=== PATIENT | male | born 1950 | race Caucasian/White ===

== ENCOUNTER 2018-08-31 05:48 | Inpatient (IN) ==
--- NOTE | 2018-08-04 15:57 | PAT Medication Instructions ---
Medication Instructions Date of Service August 04, 2018 Home Medications Lactobacillus acidophilus 1 cap PO QAM albuterol sulfate [ProAir HFA] 2 puff INHALATION QID PRN ascorbic acid (vitamin C) [Vitamin 500 mg PO QAM aspirin [Aspirin Low Dose] 81 mg PO QAM dexlansoprazole [Dexilant] 30 mg PO QAM diphenhydramine HCl 12.5 mg PO QAM PRN docusate sodium 2 cap PO QAM fluticasone [Flonase Allergy 2 spray INTRANASAL QAM ibuprofen 200 mg PO QID PRN linaclotide [Linzess] 145 mcg PO DAILY PRN metoprolol succinate [Toprol XL] 25 mg PO QAM [id number]-epa-fish oil [[place]-3 2 tab PO BID primidone 100 mg PO HS primidone 150 mg PO QAM psyllium husk [Metamucil] 1 tsp PO QPM simvastatin 40 mg PO QAM tamsulosin 0.4 mg PO QAM turmeric root extract 500 mg PO QAM ASK your surgeon for instructions ibuprofen 200 mg PO QID PRN STOP taking 2 weeks before surgery (or as soon as possible if surgery is within 2 weeks) oonay-[id number]-epa-fish oil [[place]-3 2 tab PO BID turmeric root extract 500 mg PO QAM DO NOT take the morning of surgery Lactobacillus acidophilus 1 cap PO QAM ascorbic acid (vitamin C) [Vitamin 500 mg PO QAM diphenhydramine HCl 12.5 mg PO QAM PRN docusate sodium 2 cap PO QAM linaclotide [Linzess] 145 mcg PO DAILY PRN psyllium husk [Metamucil] 1 tsp PO QPM Take morning of surgery With a small sip of water, OTHERWISE NOTHING TO EAT OR DRINK AFTER MIDNIGHT: albuterol sulfate [ProAir HFA] 2 puff INHALATION QID PRN (use if needed; please bring with you to hospital day of surgery if possible) aspirin [Aspirin Low Dose] 81 mg PO QAM dexlansoprazole [Dexilant] 30 mg PO QAM fluticasone [Flonase Allergy 2 spray INTRANASAL QAM metoprolol succinate [Toprol XL] 25 mg PO QAM primidone 150 mg PO QAM simvastatin 40 mg PO QAM tamsulosin 0.4 mg PO QAM Other Notes If you have any questions please call us at [phone] or [phone] or [phone] or [phone]
--- NOTE | 2018-08-07 12:46 | Anesthesiology Consultation ---
Date of Service August 07, 2018 Assessment & Plan (1) Encounter for pre-operative examination: Chart Review Chart Review: Acceptable Risk for Surgery and Patient seen in Pre Admission Testing Teaching & Discussion Pre-Anesthesia Teaching/Discussion Notes: Instructed NPO after midnight before surgery,except medications with 15 cc of water. Medication instructions provided according to the PAT guidelines. History Surgery Operation Date: 08/31/18 09:00 Proposed Procedures p Total Knee Arthroplasty - Daniel Sellers MD Height/Weight Height: 6 ft Weight: 123 kg Allergies Allergy/AdvReac Type Severity Reaction Status Date / Time erythromycin base AdvReac Mild gi upsets Verified 07/31/18 10:11 Medications Home Medications Medication Instructions Recorded Confirmed Last Taken Lactobacillus acidophilus 1 cap PO QAM 07/31/18 07/31/18 Unknown [Probiotic Acidophilus] albuterol sulfate [ProAir HFA] 2 puff INHALATION QID PRN 07/31/18 07/31/18 Unknown ascorbic acid (vitamin C) [Vitamin 500 mg PO QAM 07/31/18 07/31/18 Unknown C] aspirin [Aspirin Low Dose] 81 mg PO QAM 07/31/18 07/31/18 Unknown dexlansoprazole [Dexilant] 30 mg PO QAM 07/31/18 07/31/18 Unknown diphenhydramine HCl 12.5 mg PO QAM PRN 07/31/18 07/31/18 Unknown docusate sodium 2 cap PO QAM 07/31/18 07/31/18 Unknown fluticasone [Flonase Allergy 2 spray INTRANASAL QAM 07/31/18 07/31/18 Unknown Relief] ibuprofen 200 mg PO QID PRN 07/31/18 07/31/18 Unknown linaclotide [Linzess] 145 mcg PO DAILY PRN 07/31/18 07/31/18 Unknown metoprolol succinate [Toprol XL] 25 mg PO QAM 07/31/18 07/31/18 Unknown vvogr-5q-rzp-epa-fish oil [[place]-3 2 tab PO BID 07/31/18 07/31/18 Unknown Fish Oil] primidone 100 mg PO HS 07/31/18 07/31/18 Unknown primidone 150 mg PO QAM 07/31/18 07/31/18 Unknown psyllium husk [Metamucil] 1 tsp PO QPM 07/31/18 07/31/18 Unknown simvastatin 40 mg PO QAM 07/31/18 07/31/18 Unknown tamsulosin 0.4 mg PO QAM 07/31/18 07/31/18 Unknown turmeric root extract 500 mg PO QAM 07/31/18 07/31/18 Unknown Past Medical History Medical History Asthma STABLE Chronic constipation GERD (gastroesophageal reflux disease) CONTROLLED High cholesterol History of kidney stones Hypertension Osteoarthritis Sarcoidosis "DORMANT"; 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 Tremor RIGHT HAND Past Family History Family History Mother Family history of diabetes mellitus Family/Other Family history of diabetes mellitus Grandmother (Paternal) Family history of diabetes mellitus Past Surgical History Surgical History History of arthroscopic knee surgery B/L History of cardiac cath History of toe surgery RIGHT GREAT TOE SURGERY X2 Hx of lithotripsy x2 Hx of shoulder surgery B/L RCR Past Anesthesia History No Hx of Anesthesia Complications and No Family Hx of Anesthesia Complications History of PONV No Motion Sickness Screening History of Motion Sickness: Yes (OCCASIONAL) Social History Smoking Status: Never smoker Do You Dip or Chew Tobacco: No Hx Alcohol Use: Yes alcohol intake frequency: holidays/special occasions only Hx Substance Use: No substance use type: does not use Exercise / Class Metabolic Activity II 4-5 Yardwork/Stairs/Walk up hill Review of Systems Patient denies chest pain, shortness of breath, dyspnea on exertion, cough, wheezing, palpitations. Physical Exam Vital Signs VITALS BP 135/77 P 67 TEMP 97.7 SP02 95%RA RESP 18 PHYSICAL Full neck and c-spine range of motion. Full TMJ range of motion. TMD 4 finger breaths Mallampati Score 3 Dentition: intact, several crowns on sides Lungs: clear throughout to auscultation Cardiac: regular rate and rhythm, no murmurs noted Spine: normal Carotid arteries: negative bruit Extremities: no edema Testing Electrocardiogram Date: 08/07/18 Findings: + NSR @ (62) Chest X-Ray Date: 01/06/18 Findings: + NAD Lungs are clear. Stable appearance of tiffanie. No pleural effusions or pneumothorax. Laboratory Results 08/07/18 12:58 08/07/18 12:58 Blood Type A Positive 08/07/18 12:58 Antibody Screen NEGATIVE 08/07/18 12:58 PT 10.2 Seconds (9.0-12.0) 08/07/18 12:58 INR 1.0 (0.9-1.1) 08/07/18 12:58 APTT 24.4 Seconds (21.0-31.0) 08/07/18 12:58 Hemoglobin A1c 5.3 % (4.5-5.6) 08/07/18 12:58 Urine Color Yellow 08/07/18 12:58 Urine Appearance Clear (Clear) 08/07/18 12:58 Urine pH 5.0 (4.5-7.5) 08/07/18 12:58 Ur Specific [place] 1.025 (1.000-1.030) 08/07/18 12:58 Urine Protein Negative (Negative) 08/07/18 12:58 Urine Glucose (UA) Negative (Negative) 08/07/18 12:58 Urine Ketones Negative (Negative) 08/07/18 12:58 Urine Nitrite Negative (Negative) 08/07/18 12:58 Ur Leukocyte Esterase Negative (Negative) 08/07/18 12:58
[2018-08-07 14:41] LABS: Basophils # (auto) 0.03 K/uL (0-0.2); Basophils % (auto) 0.5 %; Eosinophils # (auto) 0.24 K/uL (0-0.5); Eosinophils % (auto) 3.7 %; Hematocrit (blood only) 39.6 % (42-52); Hemoglobin 13.6 g/dL (14.0-18.0); Immature Granulocytes # (auto) 0.01 K/uL (0.00-0.02); Immature Granulocytes % (auto) 0.2 %; Lymphocytes # (auto) 1.98 K/uL (1.2-3.4); Lymphocytes % (auto) 30.8 %; Mean Corpuscular Hgb Conc 34.3 g/dL (32-36); Mean Corpuscular Volume 94.5 fL (80-100); Monocytes # (auto) 0.55 K/uL (0.11-0.59); Monocytes % (auto) 8.6 %; Neutrophils # (auto) 3.61 K/uL (1.4-6.5); Neutrophils % (auto) 56.2 %; Platelet Count 171 K/uL (130-400); RDW Coefficient of Variation 12.9 % (11.5-14.5); RDW Standard Deviation 44.7 fL (36.4-46.3); Red Blood Count 4.19 M/uL (4.7-6.1); White Blood Count 6.42 K/uL (4.8-10.8)
[2018-08-07 14:46] LABS: Estimated Average Glucose 105 mg/dl; Hemoglobin A1C 5.3 % (4.5-5.6)
[2018-08-07 14:52] LABS: Partial Thromboplastin Ratio 0.9; Partial Thromboplastin Time 24.4 Seconds (21.0-31.0); Prothrombin Time 10.2 Seconds (9.0-12.0)
[2018-08-07 14:56] LABS: Appearance Urine Clear (Clear); Bilirubin Urine Negative (Negative); Blood Urine Negative (Negative); Color Urine Yellow; Glucose Urine UA Negative (Negative); Ketones Urine Negative (Negative); Leukocyte Esterase Urine Negative (Negative); Nitrite Urine Negative (Negative); Protein Urine Negative (Negative); Specific Gravity Urine 1.025 (1.000-1.030); Urobilinogen Urine Negative (Negative)
[2018-08-07 15:04] LABS: Albumin Level 3.8 gm/dl (3.4-5.0); Calcium 8.1 mg/dl (8.5-10.1); Creatinine Clr Calc Pharmacy 102.2 ml/min; Est GFR (African American) 95.6; Est GFR (Non-African American) 82.5; Potassium 4.2 mmol/L (3.5-5.1)
--- NOTE | 2018-08-30 12:14 | History and Physical Report ---
DATE OF ADMISSION: 08/31/2018 CHIEF COMPLAINT: Left knee pain. HISTORY OF PRESENT ILLNESS: The patient is a 67-year-old gentleman with known osteoarthritis about his left knee. He had a remote history of surgery in that knee many, many years ago. He had a recent corticosteroid injection with short-term relief. He continues to have pain and disability and now desires to proceed with left total knee arthroplasty. PAST MEDICAL HISTORY: Hyperlipidemia, depression, benign prostatic hypertrophy, GERD, intermittent asthma, hypertension, pulmonary sarcoidosis. PAST SURGICAL HISTORY: Shoulder arthroscopy, hand surgery, lithotripsy, tonsillectomy, toe surgery, arm surgery. MEDICATIONS: Docusate sodium 100 mg twice daily, Linzess 145 mcg daily, Zocor 40 mg daily, Flonase 2 sprays each nostril daily, Dexilant 30 mg daily, Flomax 0.4 mg daily, metoprolol succinate XL 25 mg daily, albuterol 2 puffs q. 4 hours p.r.n., probiotic daily, omega 3 two capsules daily, Mysoline 50 mg 3 tabs in the morning and 2 at bedtime, aspirin 81 mg daily. ALLERGIES: ERYTHROMYCIN. SOCIAL HISTORY AND REVIEW OF SYSTEMS: Noncontributory. PHYSICAL EXAMINATION: GENERAL: Well-nourished, well-developed male who appears stated age. HEENT: Normocephalic, atraumatic. Extraocular movements intact. Oropharynx pink and moist. NECK: Supple without adenopathy. LUNGS: Clear to auscultation bilaterally. HEART: Regular rate and rhythm. ABDOMEN: Soft, nontender, nondistended. EXTREMITIES: The upper extremity is within normal limits. The left knee has a neutral alignment. He complains primarily of lateral compartment pain. His range of motion is approximately 0-120 degrees. He has mild crepitus with range of motion. X-RAYS: X-rays were reviewed. He has a neutral aligned knee. He has near complete loss of the lateral joint space with near bone on bone arthritis. He has lateral joint line osteophytes. He has moderate degenerative change about the patellofemoral joint with osteophytes as well. ASSESSMENT: Left knee degenerative joint disease. PLAN: Risks versus benefits were discussed, consent was obtained. The patient's primary care physician is Dr. Correa. We will proceed with left total knee arthroplasty as indicated.
[2018-08-31] MEDS ORDERED: LR 500ML BOLUS, THEN 15ML/HR IV SCH (06:00)
[2018-08-31] MEDS ORDERED: FAMOTIDINE 20 MG TAB PO SCH (06:00)
[2018-08-31] MEDS ORDERED: GABAPENTIN 300 MG PO SCH (06:00)
[2018-08-31] MEDS ORDERED: ROPIVACAINE 0.5% HCL/PF 150 MG, BUPIVACAINE 0.5% MPF 30 ML, EPINEPHrine 30MG/30ML (OR U... INFIL SCH (06:00)
[2018-08-31] MEDS ORDERED: TRANEXAMIC ACID 1,000 MG **IV Pre-op IV SCH (06:00)
[2018-08-31] MEDS ORDERED: CEFAZOLIN 3000MG 65 ML IV SCH (06:00)
[2018-08-31] MEDS ORDERED: dexAMETHasone 4 MG TAB PO SCH (06:00)
[2018-08-31] MEDS ORDERED: CeleBREX 200 MG CAP PO SCH (06:00)
[2018-08-31] MEDS ORDERED: ACETAMINOPHEN 500 MG TAB PO SCH (06:00)
[2018-08-31] MEDS ORDERED: OXYCODONE HCL 10 MG TABCR (OXYCONTIN) PO SCH (06:00)
[2018-08-31] MEDS ORDERED: METOCLOPRAMIDE HCL 10 MG TABLET PO SCH (06:00)
[2018-08-31] MEDS ORDERED: BUPIVACAINE 0.5 % 5 MG/1 ML PF 10ML VIAL ONE (06:23)
[2018-08-31] MEDS ORDERED: ROPIVACAINE 0.5% 5 MG/ML 30 ML VIAL ONE (06:23)
[2018-08-31] MEDS ORDERED: TRANEXAMIC ACID 1,000 MG **IV Intra-op IV SCH (06:30)
[2018-08-31] MEDS ORDERED: ONDANSETRON INJ 2 MG/ML 2 ML VIAL IV PRN ×2 (06:45→12:01)
[2018-08-31] MEDS ORDERED: HYDROmorphone INJ 1 MG/ML SYRINGE IV PRN ×2 (06:45→12:01)
[2018-08-31] MEDS ORDERED: fentaNYL citrate 100 MCG/2 ML VIAL IV PRN (06:45)
[2018-08-31] MEDS ORDERED: ATROPINE SULFATE 0.1 MG/ML 10ML SYR IV PRN (06:45)
[2018-08-31] MEDS ORDERED: PROMETHAZINE HCL 12.5 MG in SODIUM CHLORIDE 0.9% 50 ML IV PRN (06:45)
[2018-08-31] MEDS ORDERED: ePHEDrine sulfate 50 MG/ML AMP IV PRN (06:45)
[2018-08-31] MEDS ORDERED: PHENYLEPHRINE 100MCG/ML 5ML SYR IV PRN (06:45)
[2018-08-31] MEDS ORDERED: LIDOCAINE HCL 2% 2 ML VIAL/AMP(20MG/ML) INFIL ONE (06:56)
[2018-08-31] MEDS ORDERED: PROPOFOL IV EMULSION 10 MG/ML 20 ML VIAL IV ONE ×2 (06:56→09:04)
[2018-08-31] MEDS ORDERED: fentaNYL citrate 100 MCG/2 ML VIAL ONE (06:57)
[2018-08-31] MEDS ORDERED: KETAMINE HCL INJ 50 MG/ML 10 ML VIAL ONE (06:57)
[2018-08-31] MEDS ORDERED: MIDAZOLAM HCL 1 MG/ML 2ML VIAL ONE (06:57)
--- NOTE | 2018-08-31 07:00 | History & Physical Bridge Note ---
Date of Service August 31, 2018 History & Physical Bridge Note I have examined the patient, reviewed the History & Physical and in the interval since the performance of the History & Physical I have noted the following changes of clinical significance: no changes noted
[2018-08-31] MEDS ORDERED: BACITRACIN INJ 50,000 UNIT VIAL ONE (07:06)
[2018-08-31] MEDS ORDERED: ORTHO JOINT ANESTHETIC ONE (07:06)
[2018-08-31] MEDS ORDERED: POVIDONE-IODINE OP SOLN 30 ML BTL ONE (07:06)
--- NOTE | 2018-08-31 09:25 | Operative Report ---
Post Operative Report Pre & Post Diagnosis Operation Date: 08/31/18 08:20 Pre-Op Diagnosis: Left Knee Osteoathritis Post-Op Diagnosis: Left Knee Osteoathritis Procedure Operation Date: 08/31/18 08:20 Actual Procedures p Left Total Knee Arthroplasty, Cemented(Left) - Daniel Sellers MD Surgeon Danile Sellers MD Reporting Coordinator Preston Estimated Blood Loss 10 Findings Consistent with Post-Op Diagnosis Specimens Bone fragments Drains Hemovac Complications none Disposition Accompanied Patient To Recovery: No Disposition: Recovery Room Indications Knee pain Description of Procedure Patient's left leg was prepped and draped in usual sterile manner. Limb was exsanguinated to 300 mmHg. Longitudinal incision was made electrocautery was utilized in medium. Parapatellar incision was made. The patella was everted and the knee was flexed fat pad was removed and the proximal tibia was osteotomized at the appropriate level using the oscillating saw. This bone fragment was removed. Next attention was turned to the distal femur where a drill was utilized to get access to the femoral canal. A size 6 cutting guide was utilized and the femoral cuts were made. All bone fragments were removed. The intercondylar notch was prepared this bone fragment was removed and the medial and lateral meniscal remnants were removed. Trial femur was placed and holes for the pegs were placed in the tibia was subluxed anteriorly using blunt and sharp Hohmann. Size 6 tibia was chosen size to be used tibia was prepared and a trial reduction was carried out in size 13 poly-was chosen. The patella was reamed and a size 39 tunnel was chosen. Trial was removed cement was mixed and the final components were cemented in position. Following cementation removal of excess cement the knee was held in extension while cement hardened after hardening the cement Betadine soap was utilized Hemovac drain was placed fascia was closed using #2 Mersilene subcutaneous tissue was closed using 0 Dexon skin was closed with is applied. Sterile dressing of Adaptic 4 x 4's sterile Webril umbilicus applied. Patient tolerated procedure well Was utilized to all portions of the case including positioning prepping draping surgical assistance wound closure and dressing application. I attest to the content of the Intraoperative Record and any orders documented therein. Any exceptions are noted below.
--- NOTE | 2018-08-31 10:32 | XRay Report ---
LEFT KNEE 2 VIEWS History: Left total knee arthroplasty. Degenerative arthritis. Postop. FINDINGS: The patient is status post a left total knee arthroplasty. The hardware is intact. No fract ure or dislocation. Surgical drains are in place. IMPRESSION: Left total knee arthroplasty. No evidence for hardware complication. Electronically signed by: Franck Washington M.D. 08/31/2018 10:31 AM
--- NOTE | 2018-08-31 10:51 | Anesthesiology Progress Note ---
Date of Service August 31, 2018 Anesthesia Post Procedure Vital Signs Vital Signs: Temp Pulse Pulse Resp BP Pulse Ox 08/31/18 10:41 36.9 C 97 08/31/18 10:40 64 20 121/62 95 08/31/18 10:30 68 20 122/70 96 08/31/18 10:20 70 15 111/67 97 08/31/18 10:10 75 15 110/64 97 08/31/18 10:01 36.6 C 72 18 105/51 L 94 08/31/18 06:43 37.1 C 68 20 169/85 H 95 Pain Intensity Left Knee: Pain Intensity: 0 Notes Mental Status: alert / awake / arousable Patient Amnestic to Procedure: Yes Nausea / Vomiting: adequately controlled Pain: adequately controlled Airway Patency, RR, SpO2: stable & adequate BP & HR: stable & adequate Neuraxial Anesthesia: was administered and sensory block is resolving Anesthetic Complications: no major complications apparent
[2018-08-31] MEDS ORDERED: MAGNESIUM HYDROXIDE SUSP 30 ML UDC PO PRN (12:01)
[2018-08-31] MEDS ORDERED: BISACODYL 10 MG SUPP PR PRN (12:01)
[2018-08-31] MEDS ORDERED: NALOXONE HCL 0.4 MG/1 ML VIAL/CARP IV PRN (12:01)
[2018-08-31] MEDS ORDERED: METOCLOPRAMIDE HCL INJ 5 MG/ML 2 ML VIAL IV PRN (12:01)
[2018-08-31] MEDS ORDERED: ALUMINUM/MAGNESIUM SUSP 30 ML UDC PO PRN (12:01)
[2018-08-31] MEDS ORDERED: ALBUTEROL HFA 8 GM INHALER INH PRN (13:30)
[2018-08-31] MEDS: SODIUM CHLORIDE 0.9% 1000ML 1,000 ML IV SCH (13:48)
[2018-08-31] MEDS: ACETAMINOPHEN 500 MG TAB PO SCH ×2 (13:55→21:30)
[2018-08-31] MEDS: KETOROLAC TROMETHAMINE 15 MG/ML VIAL IV SCH ×2 (13:56→21:22)
[2018-08-31] MEDS: CEFAZOLIN 2000MG 2,000 MG/15 ML SYR IV SCH ×2 (16:08→23:37)
[2018-08-31] MEDS: FERROUS GLUCONATE 324 MG TAB PO SCH (18:07)
[2018-08-31] MEDS: ASCORBIC ACID 500 MG TAB PO SCH (18:08)
[2018-08-31] MEDS: OXYCODONE HCL IR 5 MG TAB (IMMEDIATE RELEASE) PO PRN (18:55)
[2018-08-31] MEDS: SENNA 8.6 MG TAB PO SCH (21:23)
[2018-08-31] MEDS: PRIMIDONE 50 MG TAB PO SCH (21:23)
[2018-08-31] MEDS: ASPIRIN 81 MG ECTAB PO SCH (21:23)
[2018-08-31] MEDS: DOCUSATE SODIUM 100 MG CAP PO SCH (21:29)
[2018-09-01] MEDS: KETOROLAC TROMETHAMINE 15 MG/ML VIAL IV SCH ×2 (02:43→07:37)
[2018-09-01] MEDS: ACETAMINOPHEN 500 MG TAB PO SCH ×3 (06:46→22:16)
[2018-09-01] MEDS: SODIUM CHLORIDE 0.9% 1000ML 1,000 ML IV SCH (07:13)
--- NOTE | 2018-09-01 07:31 | Orthopedic Progress Note ---
Date of Service September 01, 2018 Assessment & Plan (1) Status post left knee replacement: 67 yo male stable POD #1 s/p left TKA 1. Med management 2. DVT prophylaxis- ASA, SCDs 3. PT/OT 4. D/C planning- home w/ HH Subjective Pt resting in chair, pain controlled denies complaints Physical Exam Vital Signs (Past 24 Hours): Last Vital Signs Temp 36.6 C 09/01/18 03:06 Pulse 64 09/01/18 03:06 Resp 14 09/01/18 03:06 BP 147/76 H 09/01/18 03:06 Pulse Ox 95 09/01/18 03:06 Physical Exam: Toes mobile, N/V/I, dressing and drain in place Results & Data Laboratory Results 09/01/18 Range/Units 05:21 Hepatitis C Ab Screen Pending
[2018-09-01] MEDS: FERROUS GLUCONATE 324 MG TAB PO SCH ×2 (07:35→17:37)
[2018-09-01] MEDS: ASCORBIC ACID 500 MG TAB PO SCH ×2 (07:35→17:38)
[2018-09-01] MEDS ORDERED: dexAMETHasone 10 MG in SYRINGE 0 ML IV SCH (08:00)
--- NOTE | 2018-09-01 08:01 | Anesthesiology Progress Note ---
Date of Service September 01, 2018 Anesthesia Post Procedure Vital Signs Vital Signs: Temp Pulse Pulse Resp BP BP Pulse Ox 09/01/18 07:20 36.5 C 62 15 155/80 H 94 09/01/18 03:06 36.6 C 64 14 147/76 H 95 08/31/18 23:00 36.6 C 67 16 145/67 H 94 08/31/18 15:14 36.6 C 73 18 126/69 96 08/31/18 14:33 73 16 128/72 97 08/31/18 13:28 73 16 136/71 96 08/31/18 12:50 71 16 123/69 95 08/31/18 12:24 75 16 127/77 97 08/31/18 11:45 36.8 C 68 16 118/72 96 08/31/18 11:20 36.9 C 67 16 116/71 96 08/31/18 11:10 66 17 125/70 97 08/31/18 11:00 66 17 124/63 96 08/31/18 10:50 64 15 117/68 96 08/31/18 10:41 36.9 C 97 08/31/18 10:40 64 20 121/62 95 08/31/18 10:30 68 20 122/70 96 08/31/18 10:20 70 15 111/67 97 08/31/18 10:10 75 15 110/64 97 08/31/18 10:01 36.6 C 72 18 105/51 L 94 Pain Intensity Left Knee: Pain Intensity: 0 Notes Mental Status: alert / awake / arousable and participated in evaluation Patient Amnestic to Procedure: Yes Nausea / Vomiting: adequately controlled Pain: adequately controlled Airway Patency, RR, SpO2: stable & adequate BP & HR: stable & adequate Hydration State: stable & adequate Neuraxial Anesthesia: was administered and sensory block resolved Anesthetic Complications: no major complications apparent and Pt Satisfied with anesthetic care
[2018-09-01] MEDS ORDERED: LACTOBACILLUS ACIDOPHILUS PO SCH (09:00)
[2018-09-01] MEDS ORDERED: ASCORBIC ACID 500 MG TAB PO SCH (09:00)
[2018-09-01] MEDS ORDERED: DOCUSATE SODIUM PO SCH (09:00)
[2018-09-01] MEDS: METOPROLOL SUCC 25MG EXT REL TAB PO SCH (09:01)
[2018-09-01] MEDS: MULTIVITAMIN TAB PO SCH (09:01)
[2018-09-01] MEDS: SIMVASTATIN 40 MG TAB PO SCH (09:01)
[2018-09-01] MEDS: PANTOprazole 40 MG TAB PO SCH (09:01)
[2018-09-01] MEDS: TAMSULOSIN HCL 0.4 MG CAP PO SCH (09:01)
[2018-09-01] MEDS: LACTOBACILLUS ACIDOPHILUS 1 GM PACK PO SCH (09:01)
[2018-09-01] MEDS: ASPIRIN 81 MG ECTAB PO SCH ×2 (09:01→20:30)
[2018-09-01] MEDS: FLUTICASONE PROPIONATE NA SPR 16 GM BTL NAE SCH (09:02)
[2018-09-01] MEDS: PRIMIDONE 50 MG TAB PO SCH ×2 (09:02→20:29)
[2018-09-01] MEDS: DOCUSATE SODIUM 100 MG CAP PO SCH ×2 (09:10→20:31)
[2018-09-01] MEDS: SENNA 8.6 MG TAB PO SCH (20:29)
[2018-09-01] MEDS: OXYCODONE HCL IR 5 MG TAB (IMMEDIATE RELEASE) PO PRN (21:18)
[2018-09-02] MEDS: ACETAMINOPHEN 500 MG TAB PO SCH (05:27)
[2018-09-02] MEDS: OXYCODONE HCL IR 5 MG TAB (IMMEDIATE RELEASE) PO PRN (07:33)
[2018-09-02] MEDS: FERROUS GLUCONATE 324 MG TAB PO SCH (07:48)
[2018-09-02] MEDS: FLUTICASONE PROPIONATE NA SPR 16 GM BTL NAE SCH (07:48)
[2018-09-02] MEDS: MULTIVITAMIN TAB PO SCH (07:49)
[2018-09-02] MEDS: ASPIRIN 81 MG ECTAB PO SCH (07:49)
[2018-09-02] MEDS: TAMSULOSIN HCL 0.4 MG CAP PO SCH (07:49)
[2018-09-02] MEDS: LACTOBACILLUS ACIDOPHILUS 1 GM PACK PO SCH (07:50)
[2018-09-02] MEDS: ASCORBIC ACID 500 MG TAB PO SCH (07:51)
[2018-09-02] MEDS: PRIMIDONE 50 MG TAB PO SCH (07:52)
[2018-09-02] MEDS: SIMVASTATIN 40 MG TAB PO SCH (07:53)
[2018-09-02] MEDS: PANTOprazole 40 MG TAB PO SCH (07:53)
[2018-09-02] MEDS: METOPROLOL SUCC 25MG EXT REL TAB PO SCH (07:55)
[2018-09-02] MEDS: DOCUSATE SODIUM 100 MG CAP PO SCH (07:57)
--- NOTE | 2018-09-02 08:04 | Orthopedic Progress Note ---
Date of Service September 02, 2018 Assessment & Plan (1) Status post left knee replacement: 67 yo male stable POD #2 s/p left TKA 1. Med management 2. DVT prophylaxis- ASA, SCDs 3. PT/OT 4. D/C planning- home w/ HH today. Subjective Pt resting in chair, pain controlled denies complaints POD #2, Doing well, denies sob, cp, n/v. Pain controlled well. Physical Exam Vital Signs (Past 24 Hours): Last Vital Signs Temp 36.8 C 09/02/18 06:31 Pulse 66 09/02/18 07:54 Resp 16 09/02/18 06:31 BP 137/78 09/02/18 07:54 Pulse Ox 95 09/02/18 06:31 Physical Exam: Left knee silverlon c/d/i, no drainage, no calf tenderness, toes and ankle mobile.
--- NOTE | 2018-09-04 12:57 | Discharge Summary ---
Date of Service September 14, 2018 Discharge Data Consultations 08/31/18 12:01 Consult Case Management - Discharge Planning Routine Procedures Performed Operation Date: 08/31/18 08:20 Actual Procedures p Left Total Knee Arthroplasty, Cemented(Left) - Daniel Sellers MD
--- NOTE | 2018-09-14 04:17 | Discharge Summary ---
CHIEF COMPLAINT: Left knee pain. Please see complete history and physical examination. HOSPITAL COURSE: The patient underwent left total knee arthroplasty without complication. He tolerated the procedure well and was discharged to recovery room in stable condition. His postoperative course was relatively uneventful. His postoperative pain was reasonably well controlled with a combination of spinal anesthesia, adductor canal block, intraoperative joint injection, IV, and oral pain medications. He was started on aspirin for DVT prophylaxis. He also utilized KEENAN stockings and SCDs for additional prophylaxis. His H and H was stable and did not require transfusion. His surgical drain and dressing were discontinued prior to discharge. A new surgical dressing will remain in place for approximately 7 days postoperative. He tolerated postoperative physical therapy reasonably well as he was bending his knee and ambulating appropriately. He was discharged home on postoperative day 2. He will continue his physical therapy at home. He will continue his aspirin for DVT prophylaxis and follow up in our office in approximately 10-14 days for his initial postop evaluation.
== END 2018-09-02 12:29 | disposition home health service (06) | DRG 470 ==
LOC: ASU 05:48 → 3E 10:06 → UNDODISIN 13:27
DX: Z79.899 Other long term (current) drug therapy; Z79.82 Long term (current) use of aspirin; J45.20 Mild intermittent asthma, uncomplicated; K21.9 Gastro-esophageal reflux disease without esophagitis; M17.12 Unilateral primary osteoarthritis, left knee; D86.0 Sarcoidosis of lung; E78.5 Hyperlipidemia, unspecified; N40.0 Benign prostatic hyperplasia without lower urinary tract symptoms; I10 Essential (primary) hypertension; Z98.890 Other specified postprocedural states; Z88.1 Allergy status to other antibiotic agents